=== PATIENT | male | born 1945 | race Caucasian/White ===

== ENCOUNTER 2018-12-22 10:05 | Day surgery (SDC) | payer MEDICARE ==
[~2018-12-22] VITALS: Ht 165.1 cm; Wt 76.8 kg
[~2018-12-22 10:05] MED LIST: CATAPRES0.1 MG PO; CORDARONE200 MG; COUMADIN5 MG PO; ELIQUIS5 MG PO; FLOMAX0.4 MG PO; K-TAB10 MEQ; LANOXIN250 MCG; LASIX40 MG; LASIX40 MG PO; LEVOTHROID25 MCG; LEVOTHYROXINE75 MCG PO; LOPRESSOR50 MG; METOPROLOL TART50 MG PO; MULTAQ400 MG PO; NORVASC10 MG PO; NORVASC5 MG PO; POTASSIUM CHLO10 ME1 PO; PROZAC10 MG PO; ZESTORETIC 20/11 TAB
[2018-12-22 10:33] LABS: HEMATOCRIT 40.2 % (42.0-54.0); HEMOGLOBIN 14.7 g/dL (13.5-17.5); MCH 34.8 pg (26.0-34.0); MCHC 36.6 g/dL (31.0-37.0); MEAN PLATELET VOLUME 11.3 fL (7.4-10.4); RBC 4.23 10x6/uL (4.20-6.10); RDW 17.3 % (11.5-14.5); WBC 10.5 10x3/uL (4.8-10.8)
[2018-12-22 10:43] LABS: ANION GAP 14.5 mmol/L (8-16); CALCIUM 8.7 mg/dL (8.5-10.1); CARBON DIOXIDE 31.4 mmol/L (21.0-32.0); POTASSIUM - SERUM 3.9 mmol/L (3.5-5.1)
[2018-12-22] MEDS ORDERED: MINIPRESS1 MG PO (10:56)
[2018-12-22] MEDS ORDERED: ABILIFY2 MG PO (10:56)
[2018-12-22] MEDS ORDERED: LEXAPRO20 MG PO (10:57)
[2018-12-22 11:09] VITALS: Ht 165.1 cm; Wt 76.8 kg
--- NOTE | 2018-12-24 11:13 | OP ---
PATIENT NAME: HECTOR HUMPHREY MEDICAL RECORD: [id number] :47 LOCATION:D.OPS ADMISSION DATE: SURGEON: CADEN FRAZIER MD DATE OF OPERATION: 12/22/2018 PREOPERATIVE DIAGNOSIS: History of colon polyps, in need of surveillance colonoscopy. POSTOPERATIVE DIAGNOSES: History of colon polyps, in need of surveillance colonoscopy with 1 new sessile colon polyp, 8 mm, sessile. PROCEDURES: 1. Total colonoscopy to cecum. 2. Hot biopsy forceps polypectomy times 1. SURGEON: Caden Frazier MD SUPREME COURT JUDGE: None. BLOOD LOSS: Minimal. ANESTHESIA: IV sedation. COMPLICATIONS: None. The risks, possible complications and alternatives to procedure were explained to the patient. He elects to proceed. Discussion specifically included, but was not limited to, bleeding requiring emergency reoperation, infection, intestinal injury. ENDOSCOPIC COURSE: The patient was conveyed to endoscopy suite electively on 12/22/2018. IV sedation was induced by the anesthesia staff. The patient was placed in the Donnelly position. A digital rectal examination was performed. A left-sided prostate nodule was noted and this is a known finding. A colonoscope was inserted through the anus. It was easily advanced to the cecum. The prep was adequate. Upon withdrawal, I irrigated and aspirated extensively. A combination of normal imaging and narrow band imaging were utilized. I dragged the folds. One hot biopsy forceps polypectomy was performed. A retroflexed view was obtained in the rectum. I then unretroflexed the scope and removed it under direct vision. I will see the patient in my office in 2-3 weeks. I will plan for his next surveillance colonoscopy to take place in the GI lab in 3 years. TRANSINT:[id number] Voice Confirmation ID: [id number] DOCUMENT ID: [id number] CADEN FRAZIER MD at 1113 CC: [id number] DICTATION DATE: 12/22/18 1510 [employer] TEAM MEMBER: 12/22/18 2213 [facility] 12/22/18 [place] [id number]
--- NOTE | 2018-12-24 11:34 | HP ---
PATIENT: HECTOR HUMPHREY MEDICAL RECORD: [id number] ACCOUNT: [id number] LOCATION:[facility] : 47 ADMISSION DATE: 12/22/18 PCP: YANN ZELAYA MD HISTORY AND PHYSICAL EXAMINATION HISTORY OF PRESENT ILLNESS: The patient is here for surveillance colonoscopy. He underwent a colonoscopy about 3 years ago, which revealed an ascending colon polyp, which was a tubular adenoma. He has had no symptoms. No abdominal pain. No rectal bleeding. He is here to undergo surveillance colonoscopy today. He had a colonoscopy in September of 2013. At one time he had a colon polyp at 65 cm. The last colonoscopy was in September of 2016, it revealed a tubular adenoma of the ascending colon. PAST MEDICAL AND SURGICAL HISTORY: Coronary artery disease, hypertension, atrial fibrillation, TIAs. SOCIAL HISTORY: Nonsmoker. ALLERGIES: No known drug allergies. MEDICATIONS: He has been on Eliquis. PHYSICAL EXAMINATION: GENERAL: The patient does not appear acutely ill. He does appear chronically ill. VITAL SIGNS: Reviewed. EARS: External ears appear normal. EYES: Extraocular movements are intact. NECK: Trachea is midline. CHEST: No intercostal retractions. PULMONARY: Nonlabored, no stridor. IMPRESSION: History of colon polyps, in need of surveillance colonoscopy. PLAN: Surveillance colonoscopy. TRANSINT:[id number] Voice Confirmation ID: [id number] DOCUMENT ID: [id number] ERWIN FRAZIER MD at 1134 CC: YANN ZELAYA [id number] DICTATION DATE: 12/22/18 1445 TANK TENDER: 12/22/18 1509 [facility] 12/22/18 [place] [phone]
== END 2018-12-22 16:16 | disposition home or self-care (01) ==
LOC: D.OPS 10:05
PROVIDERS: Anesthesiology; ATTEND Surgery
DX: Z12.11 Encounter for screening for malignant neoplasm of colon (principal); K63.5 Polyp of colon; N40.2 Nodular prostate without lower urinary tract symptoms; Z86.010 Personal history of colon polyps; I25.10 Atherosclerotic heart disease of native coronary artery without angina pectoris; I10 Essential (primary) hypertension; I48.91 Unspecified atrial fibrillation; Z86.73 Personal history of transient ischemic attack (TIA), and cerebral infarction without residual deficits; Z79.01 Long term (current) use of anticoagulants; Z01.812 Encounter for preprocedural laboratory examination